=== PATIENT | male | born 1955 | race Caucasian/White ===

== ENCOUNTER 2022-06-30 14:39 | Emergency (ER) | payer MEDICARE, SELFPAY ==
[2022-06-30] VITALS (7 sets, daily range): BP systolic 111–123; BP diastolic 70–79; PULSE 65–100; RESP 14–18; TEMP 36.6–37.2; O2SAT 95–99
--- NOTE | 2022-06-30 15:05 | ED.NAVMDI ---
HPI - Nausea/Vomiting/Diarrhea General Chief complaint: Nausea/Vomiting/Diarrhea Stated complaint: abdominal pain, diarrhea, vomiting Time Seen by Provider: 06/30/22 15:02 Source: patient Mode of arrival: ambulatory Limitations: no limitations History of Present Illness HPI Narrative: 67-year-old male with a history of hypertension, dyslipidemia, negative stress test in December of 2020, recent COVID presents to the ER with 1 day history of -- nausea with multiple episodes of vomiting. The last vomitus she had was at 3:00 a.m. -- Multiple loose stools. His has multiple episodes of diarrhea. decreased urine output. MD elicited complaint: nausea, vomiting and diarrhea Pertinent past history: anorexia Onset (ago): hour(s) ( Started 15 hours ago.) Description of vomiting: watery Description of diarrhea: watery Associated nausea: Yes Associated abdominal pain: No Location of pain: none Radiation: diffuse Pain consistency: constant Severity: mild Exacerbating factors: none Relieving factors: none Associated symptoms: denies other symptoms Related Data Allergies Allergy/AdvReac Type Severity Reaction Status Date / Time No Known Allergies Allergy Unknown Verified 06/30/22 15:16 Review of Systems Review of Systems: All systems reviewed & are unremarkable except as noted in HPI and below Constitutional: Constitutional: Reports as per HPI and Reports no additional constitutional complaints Eyes: Eyes: Reports as per HPI and Reports no additional eye complaints ENT: Reports system reviewed and no additional complaints, except as documented and Reports as per HPI Cardiovascular: Cardiovascular: Reports as per HPI and Reports no additional cardiovascular complaints Respiratory: Respiratory: Reports as per HPI and Reports no additional respiratory complaints Gastrointestinal: Gastrointestinal: Reports as per HPI, Reports no additional gastrointestinal complaints, Reports diarrhea, Reports nausea and Reports vomiting Genitourinary: Genitourinary: Reports no additional male genitourinary complaints and Reports as per HPI Musculoskeletal: Musculoskeletal: Reports no additional musculoskeletal complaints and Reports as per HPI Integumentary/Breasts: Skin/Breast: Reports system reviewed and no additional complaints, except as docu and Reports as per HPI Neurologic: Reports system reviewed and no additional complaints, except as documented and Reports as per HPI Psychiatric: Psychiatric: Reports no additional psychiatric complaints and Reports as per HPI Endocrine: Endocrine: Reports no additional endocrine complaints and Reports as per HPI Hematologic/Lymphatic: Hematologic/Lymphatic: Reports no additional hematologic/lymphatic complaints and Reports as per HPI Allergic/Immunologic: Allergic/Immunologic: Reports no additional allergic/immunologic complaints and Reports as per HPI [facility] Past Medical History Medical History Hypertension Mixed hyperlipidemia Normal colonoscopy (~06/2007) Surgical History Surgical History H/O hernia repair History of repair of right rotator cuff S/P tendon repair Right thumb Family History Family History Father Family history of heart disease in male family member before age 55 Hypertension Mother Family history of heart disease in male family member before age 55 Hypertension Family history of diabetes mellitus in first degree relative Sibling Asthma Acute myocardial infarction Social History Social History Smoking status: Never smoker Alcohol intake: current Alcohol use details: seldom; socially Substance use: never Substance use type: does not use Exam Const: General: healthy appearing and no acute distress Nutritional Appearance: we
[2022-06-30 15:43] LABS: Basophils Absolute Auto 0.03 K/mm3 (0.00-0.10); Basophils Percent Auto 0.3 % (0.0-1.0); Eosinophils Absolute Auto 0.02 K/mm3 (0.02-0.50); Eosinophils Percent Auto 0.2 % (1.0-6.0); Hematocrit 46.4 % (37.0-46.0); Hemoglobin 15.7 g/dL (12.4-15.3); Immature Granulocyte Absolute 0.04 K/mm3 (0.00-0.00); Immature Granulocyte Percent A 0.4 % (0.0-0.0); Lymphocytes Absolute Auto 0.88 K/mm3 (1.10-4.50); Lymphocytes Percent Auto 8.8 % (18.0-42.0); Mean Corpuscular HGB Conc 33.8 g/dL (32.0-36.0); Mean Corpuscular Hemoglobin 31.9 pg (27.0-31.0); Mean Corpuscular Volume 94.3 fL (78.0-102.0); Mean Platelet Volume 11.1 fl (8.7-11.0); Monocytes Absolute Auto 0.68 K/mm3 (0.10-0.90); Monocytes Percent Auto 6.8 % (2.0-11.0); Neutrophils Absolute Auto 8.4 K/mm3 (1.7-7.2); Neutrophils Percent Auto 83.5 % (50.0-70.0); Platelet Count Result 237 K/mm3 (150-420); Red Blood Count 4.92 M/mm3 (4.70-6.10); Red Cell Distribution Width 12.4 % (11.6-14.4)
[2022-06-30] MEDS: LACTATED RINGERS 1,000 ML 999 ML IV CONT (15:43)
[2022-06-30] MEDS: ONDANSETRON INJ 4 MG/2 ML VIAL IV PUSH (15:44)
[2022-06-30 15:56] LABS: Prothrombin Time 11.3 Seconds (9.50-12.10)
[2022-06-30 15:58] LABS: Alanine Aminotransferase 35 U/L (16-63); Alkaline Phosphatase 107 U/L (46-116); Aspartate Amino Transferase 21 U/L (15-37); Bilirubin,Total 0.8 mg/dL (0.00-1.00); Blood Urea Nitrogen 18 mg/dL (7-18); Calcium 8.8 mg/dL (8.5-10.1); Carbon Dioxide 29 mmol/L (21-32); Estimated CRCL calculation 66 ml/min; Estimated Glomerular Filt Rate > 60; Glucose 108 mg/dL (70-99); Lipase 28 U/L (16-77); Total Protein 7.5 g/dL (6.4-8.2)
[2022-06-30 16:01] LABS: Lactic Acid Reflex 1.3 mmol/L (0.4-2.0)
[2022-06-30 18:25] LABS: Anion Gap 10 mmol/L (8-16); Chloride 102 mmol/L (98-108); Osmolality Calculated 294 mOsm/kg (285-295); Potassium 4.1 mmol/L (3.5-5.1); Sodium 141 mmol/L (136-145)
--- NOTE | 2022-06-30 18:31 | PC.NURSE ---
while giving report to aguilar layne corrected chem panel resulted and values were normal. erp discussed this with pt and hospitalist and admission cancelled.
== END 2022-06-30 18:57 | disposition home or self-care (01) ==
LOC: CHSED 18:20 → CHS2ND 18:35 → CHSED 18:49
PROVIDERS: Emergency Provider Internal Medicine Critical Care Medicine; PCP Family Medicine
DX: K52.9 Noninfective gastroenteritis and colitis, unspecified (principal); E86.0 Dehydration; E87.8 Other disorders of electrolyte and fluid balance, not elsewhere classified; I10 Essential (primary) hypertension; E78.2 Mixed hyperlipidemia
CPT/HCPCS: 36415; 80053; 83605; 83690; 85025; 85610; 96361; 96374; 99284; J2405; J7120

== ENCOUNTER 2024-08-22 13:30 | Emergency (ER) | payer MEDICARE, SELFPAY ==
--- NOTE | ~2024-08-22 | US_ITS ---
EXAMINATION: US venous doppler [facility] DATE: 08/22/2024 14:22 INDICATION: Right lower limb pain. TECHNIQUE: Grayscale ultrasound images without and with compression and Doppler ultrasound images of the bilateral lower extremity veins were obtained. COMPARISON: Ultrasound 05/18/2004 FINDINGS: The visualized portions of right common femoral vein, profunda (deep) femoral vein, femoral vein, pop liteal vein, peroneal veins, posterior tibial veins, and greater saphenous vein outflow are patent. The visualized portions of left common femoral vein, profunda femoral vein, femoral vein, popliteal v ein, peroneal veins, posterior tibial veins, and greater saphenous vein outflow are patent. IMPRESSION: 1. No deep venous thrombosis. Reviewed, dictated and finalized at location B.
[2024-08-22 13:32] VITALS: BP 124/60; PULSE 92; RESP 16; TEMP 36.8; O2SAT 98
--- NOTE | 2024-08-22 14:07 | ED.EXTPRO ---
HPI - Extremity Problem General Chief complaint: Extremity Problem,Nontraumatic Stated complaint: RIGHT lower leg concerns Time Seen by Provider: 08/22/24 13:42 History of Present Illness HPI Narrative: 69-year-old male with a past medical history including hypertension, hyperlipidemia. He presents to the emergency department for evaluation of right lower extremity swelling since Tuesday. He states he is not murmur any injury or trauma. No bug bites but woke up on Tuesday with a swollen right leg. Is circumferentially swollen from his knee down to his ankle. Ice pitting edema in his right leg. No history of CHF, no history of DVT. Was otherwise in his normal state of health. Denies any fever, chills, abdominal pain, chest pain, shortness a breath, back pain. No knee pain, is able to range his extremity, ambulatory without assistance. States that he has some pain in his posterior calf on the right side the gets better with ambulation. Related Data Allergies Allergy/AdvReac Type Severity Reaction Status Date / Time No Known Allergies Allergy Unknown Verified 08/22/24 13:38 Review of Systems Review of Systems: As reviewed above in HPI [facility] Past Medical History Medical History Screening for prostate cancer Screening for ischemic heart disease On intermediate drug therapy Colon cancer screening Normal colonoscopy (~06/2007) Mixed hyperlipidemia Hypertension Surgical History Surgical History History of repair of right rotator cuff H/O hernia repair S/P tendon repair Right thumb Family History Family History Father Family history of heart disease in male family member before age 55 Hypertension Mother Family history of heart disease in male family member before age 55 Hypertension Family history of diabetes mellitus in first degree relative Sibling Asthma Acute myocardial infarction Social History Social History Smoking status: Never smoker Alcohol intake: current Alcohol use details: seldom; socially Substance use: never Substance use type: does not use Lack of Transportation: No Lack of Food: Never True Current Housing: I Have Housing Concerned About Future Housing: No Difficulty Paying Gas/Electric Bills: No Difficulty Paying for Meds: No Currently Unemployed: No Education: High School Diploma/GED Difficulty w/ Childcare or Family Care: No Living arrangements: with family Gender identity (if verbalized by the patient): Male Spiritual care concerns: No Agree to blood products: Yes Exam Narrative: GENERAL: [Well-appearing, well-nourished, and in no acute distress.] HEAD: [Normocephalic, atraumatic.] EYES: [PERRLA and EOMI.] ENT: Nares clear, no rhinorrhea or epistaxis. Mucous membranes moist. NECK: Supple. CHEST: [Clear to auscultation. No respiratory distress.] HEART: [Regular rate and rhythm]. No murmur heard. [Normal peripheral pulses.] ABDOMEN: [Soft, nondistended], [nontender], [No rigidity or guarding] EXTREMITIES: Right lower extremity swelling from the knee down to the ankle with 2+ pitting edema compared to the left side without any edema. Some warmth and tenderness as well as some redness to the skin on the right side consistent with potential cellulitic skin changes verses DVT. Extensor mechanism intact, able to ambulate in the ED. Flexion and extension at the knee and ankle are full. No restricted range of motion or pain with ranging. SKIN: Warm, dry, no rash. NEURO: [No focal deficits]. Alert and oriented [x3.] PSYCH: [Normal mood and affect.] Course Vital Signs Vital signs: Vital Signs Temperature 36.8 C 08/22/24 13:32 Pulse Rate 92 08/22/24 13:32 Respiratory Rate 16 08/22/24 13:32 Blood Pressure 124/60 08/22/24 13:32 Pulse Oximetry 98 08/22/24 13:32 Oxygen Delivery Room Air 08/22/24 13:32 Temperature 36.8 C 08/22/24 13:32 Pulse Rate 92 08/22/24 13:32 Respiratory Rate 16 08/22/24 13:32 Blood Pressure 124/60 08/22/24 13:32 Pulse Oximetry 98 08/22/24 13:32 Oxygen Delivery Room Air 08/22/24 13:32 MDM - Extremity (Nontraumatic) MDM Narrative Medical decision making narrative: 69-year-old male presenting for evaluation of right lower extremity swelling. His examination is are consistent with potential DVT versus cellulitis. He has a swollen right leg from the knee down to the ankle with 2+ pitting edema with some warmth tenderness and erythema. No obvious foci of injury, he denies any falls or trauma. No history of DVT. He has 2+ symmetric pedal pulses. Warm well-perfused extremity. Normal vital signs. No real risk factors for deep venous thrombosis is he is not sedentary, no recent surgery, no recent travel or immobilization. Will obtain bilateral venous Doppler ultrasounds and decide on treatment regimen based on those. Potential antibiotics versus anticoagulants. DVT ultrasound shows no blood clot or DBS thrombosis. Patient will be started on Bactrim for right leg cellulitis. Patient hemodynamically stable and made aware of diagnosis and plan of care. Discharge Plan Discharge Clinical Impression: Cellulitis of leg, right Patient Disposition: Home, Self-Care Condition: Stable Instructions: Antibiotic Form, Cellulitis (ED) Additional Instructions: Your DVT scan shows no blood clot or deep venous thrombosis. We will treat you for cellulitis based on your clinical exam. Follow-up with regular doctor, take antibiotics for the next week and return with any new or worsening concerns. Patient Language: Mozambican Prescriptions: New sulfamethoxazole-trimethoprim [Bactrim DS] 800-160 mg tablet 1 tablet PO Q12H Qty: 14 0RF No Action atorvastatin 20 mg tablet 20 mg PO DAILY Qty: 90 2RF lisinopril 10 mg tablet 10 mg PO DAILY Qty: 100 2RF Follow-up/Referrals: Radha Patel MD [Primary Care Provider] - Time of Disposition: 14:42
--- OUTSIDE RECORDS SUMMARY | 2024-08-22 15:08 | XMS_ITS | Clinical Summary ---
Author Organization [facility] Address [address] [place] [address] Care Team Providers Care Molder Vacuum Name Role Phone Unavailable Primary Care Provider Unavailabl e Source Comments [facility],non-owned Affiliates and Associated Physician Practices is amultiple site organization consisting of ambulatory clinics and hospital sitesin [place], [place], [place] and [place]. This disclosure is being madepursuant to the Care Everywhere program and may not contain all information available regarding this patient. Last updated 18.[facility] Immunizations Name Administration Dates Next Due INFLUENZA VACCINE, QUADR. (F LUZONE; FLULAVAL; FLUARIX; AFLURIA QUADRIVALENT; 6MO+), 0.5 ML (IIV4) 04/15/2019 Social History Tobacco Use Types Packs/Day Years Used Date Smoking Tobacco: Never Assessed Sex and Gender Information Value Date Recorded Sex Assigned at Not on file Gender Identity Not on file Sexual Orientation Not on file Plan of Treatment Health Maintenance Due Date Last Done Comments COLOGUARD (AGES 45-75) - COL ON CA SCREENING 1957 COLON MONITORING 1957 COLONOSCOPY - COLON CA SCREENING 1957 CT COLONOGRAPHY - COLON CA SCREENING 1957 Colorectal Cancer Screening 1957 FIT - COLON CA SCREENING 1957 FLEX SIG - COLON CA SCREENING 1957 LIPID TESTING 1957 HEPATITIS C SCREENING 01/26/1975 DTAP/TDAP/TD VACCINES (1 - Tdap) 01/31/1976 PNEUMOCOCCAL VACCINE 50+ (1 of 1 - PCV) 2007 ZOSTER VACCINE (1 of 2) 2007 COVID-19 VACCINE (1 - 2023-2 5 season) 2024 INFLUENZA VACCINE (#1) 2024 04/15/2019 DEPRESSION SCREENING 06/13/2024 Respiratory Syncytial Virus (RSV) Vaccine Pt: or over 60 yrs (1 - 1-dose 75+ series) 01/31/2032 HEPATITIS B VACCINE Aged Out No longe r eligible based on patient's age to complete this topic HIB VACCINE Aged Out No longer eligi ble based on patient's age to complete this topic HPV VACCINE Aged Out No longer eligi ble based on patient's age to complete this topic MENINGOCOCCAL (Group B) VACC INE SHARED DECISION-MAKING Aged Out No longer eligibl e based on patient's age to complete this topic MENINGOCOCCAL GROUPS A/C/Y/W VACCINE Aged Out No longer eligible b ased on patient's age to complete this topic
--- OUTSIDE RECORDS SUMMARY | 2024-08-22 15:08 | XMS_ITS | Referral Summary ---
Author Organization [facility] Address [address] [place] [address] Care Team Providers Care Pharmacovigilance Specialist Name Role Phone Unavailable Primary Care Provider Unavailabl e Source Comments [facility],non-owned Affiliates and Associated Physician Practices is amultiple site organization consisting of ambulatory clinics and hospital sitesin [place], [place], [place] and [place]. This disclosure is being madepursuant to the Care Everywhere program and may not contain all information available regarding this patient. Last updated 18.[facility] Immunizations Name Administration Dates Next Due INFLUENZA VACCINE, QUADR. (F LUZONE; FLULAVAL; FLUARIX; AFLURIA QUADRIVALENT; 6MO+), 0.5 ML (IIV4) 04/15/2019 Social History Tobacco Use Types Packs/Day Years Used Date Smoking Tobacco: Never Assessed Sex and Gender Information Value Date Recorded Sex Assigned at Not on file Gender Identity Not on file Sexual Orientation Not on file Plan of Treatment Not on file
--- OUTSIDE RECORDS SUMMARY | 2024-08-22 15:08 | XMS_ITS | Clinical Summary ---
Author Organization [facility] Address [facility] [place] [address] Care Team Providers Care Flotation Tender Name Role Phone Radha Patel MD Primary Care Provider [phone] Allergies No known active allergies Medications lisinopril 10 MG tablet Take 1 tablet by mouth daily. 06/03/2021 Active atorvastatin 20 MG tablet Take 1 tablet by mouth daily. 06/03/2021 Active busPIRone 5 MG tablet Take 1 tablet by mouth nightly. 1-2 tablets at night 05/27/2021 Active Active Problems Problem Noted Date Diagnosed Date S/P right rotator cuff repair 11/13/2021 Shoulder impingement, right 07/21/2021 Resolved Problems Problem Noted Date Diagnosed Date Resolved Date Follow-up examination after orthopedic surgery 01/29/2022 02/01/2022 Family History Medical History Relation Comments Heart Attack Brother Heart Disease Father Diabetes Mother Heart Disease Mother Asthma Sister Diabetes Sister Relation Status Comments Brother Father Mother Sister Alive Social History Tobacco Use Types Packs/Day Years Used Date Smoking Tobacco: Never Smokeless Tobacco: Never Alcohol Use Standard Drinks/Week Comments Yes 0 (1 standard drink = 0.6 oz pur e alcohol) Rarely Sex and Gender Information Value Date Recorded Sex Assigned at Not on file 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 Gender Identity Not on file Sexual Orientation Not on file Last Filed Vital Signs Vital Sign Reading Time Taken Comments Blood Pressure 102/62 09/24/2021 12:22 PM CDT Pulse 76 09/24/2021 12:22 PM CDT Temperature 35.9 C (96.7 F) 09/24/2021 12:22 PM CDT Respiratory Rate 18 09/24/2021 12:22 PM CDT Oxygen Saturation 100% 09/24/2021 12:22 PM CDT Inhaled Oxygen Concentration - - Weight 96.2 kg (212 lb) 03/03/2022 3:52 PM CDT Height 180.3 cm (5' 11 ) 03/03/2022 3:52 PM CDT Body Mass Index 29.57 03/03/2022 3:52 PM CDT Plan of Treatment Health Maintenance Due Date Last Done Comments Colorectal Cancer Screening Colonoscopy (10 Years) 1957 Hepatitis C 1975 DTaP, Tdap and Td Vaccines ( 1 - Tdap) 01/31/1976 Zoster Vaccines (1 of 2) 2007 Pneumococcal Vaccine: 65+ Years (1 of 1 - PCV) 2022 COVID-19 Vaccine (3 - 2023-2 5 season) 2024 08/12/2020, 07/15/2020 Influenza Adult (#1) 2024 04/15/2019 RSV Immunization or 60+ Years (1 - 1-dose 75+ series) 01/31/2032 Meningococcal B Vaccine Aged Out No l onger eligible based on patient's age to complete this topic Meningococcal Vaccine Aged Out No prabhjot palmira eligible based on patient's age to complete this topic RSV Immunizations Under 20 Months Aged Out No longer eligible b ased on patient's age to complete this topic Medical Devices Implanted Type Area Sole Trimmer Device Identifier Shelf Expiration Date Model / Serial / Lot Meridian Suture Bio-Swivelock C [employer] - [id number] Implanted:Qty: 1 on 09/24/2021 by Dmitry Otero MD at [facility] Meridian Right: Shoulder [employer] [id number] 11/10/[address] / / [id number] Meridian Suture Bio-Swivelock C [employer]rex White/Black 4.75 X 19.1mm - [id number] Implanted:Qty: 1 on 09/24/2021 by Dmitry Otero MD at [facility] Meridian Right: Shoulder [employer] [id number] 11/10/2024 [id number]-2324BC CTT / / [id number] Meridian Suture 4.75mm - [id number] Implanted:Qty: 1 on 09/24/2021 by Dmitry Otero MD at [facility] Meridian Right: Shoulder [employer] [id number] 04/12/2025 AR-2324BC M / / [id number] Meridian Suture 4.75mm - [id number] Implanted:Qty: 1 on 09/24/2021 by Dmitry Otero MD at [facility] Meridian Right: Shoulder [employer] [id number] 02/10/2025 [id number]-[id number] M / / [id number] Insurance [employer] [facility] Care Teams Flotation Tender Relationship Specialty Start Date End Date Radha Patel MD [address] [place] [address] PCP - General FAMILY PRACTICE 07/21/21
--- OUTSIDE RECORDS SUMMARY | 2024-08-22 15:08 | XMS_ITS | Referral Summary ---
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
--- OUTSIDE RECORDS SUMMARY | 2024-08-22 15:08 | XMS_ITS | Clinical Summary ---
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
--- OUTSIDE RECORDS SUMMARY | 2024-08-22 15:08 | XMS_ITS | Patient Health Summary ---
Author Organization [facility] Address [address] [place] [address] Care Team Providers Care Facility Examiner Name Role Phone Unavailable Primary Care Provider Unavailabl e Note from [facility],non-owned Affiliates and Associated Physician Practices is amultiple site organization consisting of ambulatory clinics and hospital sitesin [place], [place], [place] and [place]. This disclosure is being madepursuant to the Care Everywhere program and may not contain all information available regarding this patient. Last updated 18.[facility] Immunizations * INFLUENZA VACCINE, QUADR. (FLUZONE; FLULAVAL; FLUARIX; AFLURIA QUADRIVALENT; 6MO+), 0.5 ML (IIV4)(Given 04/15/2019) Social History Tobacco Use Types Packs/Day Years Used Date Smoking Tobacco: Never Assessed Sex and Gender Information Value Date Recorded Sex Assigned at Not on file Gender Identity Not on file Sexual Orientation Not on file
--- OUTSIDE RECORDS SUMMARY | 2024-08-22 16:25 | XMS_ITS | Referral Summary ---
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
--- OUTSIDE RECORDS SUMMARY | 2024-08-22 16:25 | XMS_ITS | Referral Summary ---
Author Organization [facility] Address [address] [facility] [place] [address] Care Team Providers Care Form Raiser Name Role Phone Unavailable Primary Care Provider Unavailabl e Source Comments [facility],non-owned Affiliates and Associated Physician Practices is amultiple site organization consisting of ambulatory clinics and hospital sitesin [place], [place], [place] and [place]. This disclosure is being madepursuant to the Care Everywhere program and may not contain all information available regarding this patient. Last updated 18.[facility] Immunizations Name Administration Dates Next Due [...]
--- OUTSIDE RECORDS SUMMARY | 2024-08-22 16:25 | XMS_ITS | Clinical Summary ---
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
--- OUTSIDE RECORDS SUMMARY | 2024-08-22 16:25 | XMS_ITS | Patient Health Summary ---
Author Organization [facility] Address [address] [facility] [place] [address] Care Team Providers Care Investigator Operator Name Role Phone Unavailable Primary Care Provider Unavailabl e Note from [facility],non-owned Affiliates and Associated Physician Practices is amultiple site organization consisting of ambulatory clinics and hospital sitesin [place], [place], [place] and [place]. This disclosure is being madepursuant to the Care Everywhere program and may not contain all information available regarding this patient. Last updated 18.[facility] Immunizations * INFLUENZA VACCINE, QUADR. (FLUZONE; FLULAVAL; FLUARIX; AFLURIA QUADRIVALENT; 6MO+), 0.5 ML (IIV4)(Given 04/15/2019) Social History Tobacco Use Types Packs/Day Years Used Date Smoking Tobacco: Never Assessed Sex and Gender Information Value Date Recorded Sex Assigned at Not on file Gender Identity Not on file Sexual Orientation Not on file
--- OUTSIDE RECORDS SUMMARY | 2024-08-22 16:25 | XMS_ITS | Clinical Summary ---
Author Organization [facility] Address [address] [place] [address] Care Team Providers Care Veneer Stacker Name Role Phone Unavailable Primary Care Provider Unavailabl e Source Comments [facility],non-owned Affiliates and Associated Physician Practices is amultiple site organization consisting of ambulatory clinics and hospital sitesin [place], [place], [place] and [place]. This disclosure is being madepursuant to the Care Everywhere program and may not contain all information available regarding this patient. Last updated 18.[facility] Kymab Immunizations Name Administration Dates Next Due INFLUENZA [...]
--- OUTSIDE RECORDS SUMMARY | 2024-08-22 16:25 | XMS_ITS | Clinical Summary ---
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 Gender Identity Not on file Sexual Orientation [...] this topic Medical Devices Implanted Type Area Assistant Buyer Device Identifier Shelf Expiration Date Model / Serial / Lot [place] Suture Bio-Swivelock C [employer] - [id number] Implanted:Qty: 1 on 09/24/2021 by Dmitry Otero MD at [facility] [employer]rest Right: Shoulder [employer] [id number] 11/10/[address] / / [id number] [employer] [place] Suture Bio-Swivelock C [employer] White/Black 4.75 X 19.1mm - [id number] Implanted:Qty: 1 on 09/24/2021 by Dmitry Otero MD at [facility] [employer] Right: Shoulder [employer] [id number] 11/10/2024 RONEY-2324BC CTT / / [id number] [employer] Suture 4.75mm - [id number] Implanted:Qty: 1 on 09/24/2021 by Dmitry Otero MD at [facility] [employer] Right: Shoulder [employer] [id number] 04/12/2025 AR-2324BC M / / [id number] [employer] Suture 4.75mm - [id number] Implanted:Qty: 1 on 09/24/2021 by Dmitry Otero MD at [facility] [employer] Right: Shoulder [employer] [id number] 02/10/2025 AR-2324BC M / / [id number] Insurance [employer] [facility] Care Teams Business Editor Relationship Specialty Start Date End Date Radha Patel MD [address] [place] [address] PCP - General FAMILY PRACTICE 07/21/21
== END 2024-08-22 15:01 | disposition home or self-care (01) ==
PROVIDERS: Emergency Provider Student in an Organized Health Care Education/Training Program; PCP Family Medicine
DX: L03.115 Cellulitis of right lower limb (principal); I10 Essential (primary) hypertension; E78.2 Mixed hyperlipidemia
CPT/HCPCS: 93970; 99284

== ENCOUNTER 2025-03-22 21:36 | Emergency (ER) | payer MEDICARE, SELFPAY ==
[2025-03-22] VITALS (14 sets, daily range): BP systolic 103–150; BP diastolic 81–89; PULSE 82–93; RESP 10–18; TEMP 37; O2SAT 98–100
--- NOTE | ~2025-03-22 | CT_ITS ---
EXAMINATION: CT thoracic lumbar wo con DATE: 03/23/2025 01:12 INDICATION: Trauma. TECHNIQUE: Computed tomography (CT) of the thoracic and lumbar spine was performed without intravenous contrast. Automated exposure control and iterative reconstruction technique were employed. The dose-length product was 2090.78 mGy-cm. COMPARISON: None FINDINGS: CT THORACIC SPINE: There is 5 degrees dextrocurvature of thoracic spine. There is mild chronic anterior wedging of T5, T6, and T7 vertebral bodies. There is a compression fracture of T12 with less than 1/5 loss of height. There is mildly decreased disc height at multiple levels. There is moderate to severely decreased disc height from T4-T5 through T11-T12. There is multilevel mild facet joint osteoarthritis. There is mild neural foraminal stenosis at multiple levels on either side. On the right, there is moderate neural foraminal stenosis at T11-T12. On the left, there is moderate neural foraminal stenosis at T8-T9 and T11-T12. 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 There is mild central canal stenosis at many levels. CT LUMBAR SPINE: There is 7 degrees dextrocurvature of lumbar spine. There is mild chronic anterior wedging of L1 vertebral body. There is moderately decreased disc height at L1-L2 and L2-L3 and severely decreased disc height from L3-L4 through L5-S1. There is multilevel severe facet joint osteoarthritis. The discs are bulging from L1-L2 through L5-S1. There is mild neural foraminal stenosis at multiple levels on either side. On the right, there is moderate neural foraminal stenosis at L3-L4, L4-L5, and L5-S1. There is mild central canal stenosis at L1-L2 and L2-L3, moderate central canal stenosis at L3-L4 and L4-L5, and mild central canal stenosis at L5-S1. IMPRESSION: 1. T12 compression fracture. 2. Severe thoracic and lumbar spondylosis. Reviewed, dictated and finalized at location E.
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
--- NOTE | ~2025-03-22 | CT_ITS ---
EXAMINATION: CTA chest PE abdomen pel DATE: 03/23/2025 01:12 INDICATION: Trauma. TECHNIQUE: Computed tomography angiography (CTA) of the chest was performed with 100 mL Omnipaque-350 intravenous contrast timed to evaluate the pulmonary arteries. Coronal maximum intensity projection 3D-reconstructions were created by the technologist. Computed tomography (CT) of the abdomen and pelvis was performed with intravenous contrast. Automated exposure control and iterative reconstruction technique were employed. The dose-length product was 2011.35 mGy-cm. COMPARISON: None. FINDINGS: CTA chest: The lungs demonstrate mild atelectasis. Calcified lung nodules and calcified hilar mediastinal lymph nodes are consistent with old granulomatous disease. No pleural effusion. The heart size is normal. No pericardial effusion. There is no pulmonary embolus. The aorta is normal in caliber. There are suture anchors in right humeral head. There is mild chronic anterior wedging of multiple vertebral bodies. There is moderate thoracic spondylosis. CT abdomen and pelvis: The liver, gallbladder, spleen, pancreas, adrenal glands, and kidneys are normal. The prostate is severely enlarged. There are no dilated loops of bowel. The appendix is normal. There are no pathologically enlarged lymph nodes. There is no free intraperitoneal fluid. There is severe lumbar spondylosis. IMPRESSION: 1. No acute posttraumatic findings. Reviewed, dictated and finalized at location E.
--- NOTE | 2025-03-22 21:57 | ECG_ITS ---
Test Date: 2025-03-22 21:35:17 Measurements Intervals [place] Rate: 89 P: 39 VA: 167 QRS: 37 QRSD: 106 T: 22 QT: 385 QTc: 470 Interpretive Statements SINUS RHYTHM MINIMAL Q WAVES- INFERIOR LEADS BASELINE ARTIFACT- II, III, AVR, AVF BORDERLINE ECG No previous ECG available for comparison Electronically Signed On 03-23-2025 08:43:54 CDT by Khurram Olson D.O.
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
[2025-03-22] MEDS: SODIUM CHLORIDE 0.9% IV 1,000 ML 999 ML IV CONT (22:05)
[2025-03-22] MEDS: NALOXONE HCL 0.4 MG/ML VIAL IV PUSH (22:06)
[2025-03-22 22:19] LABS: Alveolar/Arterial O2 Gradient 62.3 mmHg; Fractional Inspired Oxygen 28 %; HCO3 ABG 21.9 mEq/l (22.0-26.0); Oxygen Content ABG 19.2 %vol (16.0-22.0); Oxygen Saturation ABG 97.1 % (95.0-100.0); PCO2 ABG 37.5 mmHg (35.0-45.0); PO2 ABG 93.1 mmHg (80.0-100.0); PO2 FiO2 Ratio Arterial Blood 3.33 %
[2025-03-22 22:21] LABS: Liters per Minute 2.0 LPM; Modified Allen's Test Pass; Site Drawn RIGHT RADIAL
--- OUTSIDE RECORDS SUMMARY | 2025-03-22 22:31 | XMS_ITS | Clinical Summary ---
Author Organization [facility] [address] Address [address] [place] [address] Care Team Providers Care Instruction Librarian Name Role Phone Radha Patel MD Primary Care Provider Allergies No known active allergies Social History Tobacco Use Types Packs/Day Years Used Date Smoking Tobacco: Never Assessed Personal Safety Answer Date Recorded Getting School Help Needed Not on file 08/27 Sex and Gender Information Value Date Recorded Sex Assigned at Not on file Legal Sex Male 3:42 AM [employer] Gender Identity Not on file Sexual Orientation Not on file Plan of Treatment Not on file Insurance [facility] [employer] Care Teams Instruction Librarian Relationship Specialty Start Date End Date Radha Patel MD PCP - General Family Medicine 12/29/20
[2025-03-22 23:48] LABS: Hematocrit 40.3 % (42.0-52.0); Hemoglobin 13.8 g/dL (14.0-18.0); Immature Granulocyte Percent A 0.2 % (0-0.5); Lymphocytes Absolute Auto 1.33 K/mm3 (0.9-3.2); Mean Corpuscular HGB Conc 34.2 g/dl (32-36); Mean Corpuscular Hemoglobin 32.7 pg (26-34); Mean Corpuscular Volume 95.5 fl (80-100); Nucleated Red Blood Cells Absolute Auto 0.000 K/mm3 (0.0-0.012); Nucleated Red Blood Cells Perc 0.0 % (0.0-0.2); Platelet Count Result 190 k/mm3 (150-375); Red Blood Count 4.22 M/mm3 (4.6-6.20); White Blood Count 12.4 K/mm3 (4.5-10.0)
[2025-03-22 23:59] LABS: Creatine Kinase 198 U/L (55-170)
[2025-03-23] VITALS (17 sets, daily range): BP systolic 136–186; BP diastolic 80–94; PULSE 60–86; RESP 9–18; TEMP 36.8; O2SAT 98–100
[2025-03-23 00:03] LABS: Alanine Aminotransferase 27 U/L (6-50); Albumin Level 4.0 g/dL (3.5-5.1); Alkaline Phosphatase 99 U/L (38-126); Anion Gap 6 mmol/L (4-12); Aspartate Amino Transferase 30 U/L (17-59); Bilirubin,Total 0.6 mg/dL (0.2-1.3); Blood Urea Nitrogen 19 mg/dL (9-20); Calcium 8.7 mg/dL (8.4-10.2); Carbon Dioxide 26 mmol/L (22-30); Chloride 105 mmol/L (98-107); Estimated CRCL calculation 86 ml/min; Estimated Glomerular Filt Rate > 60; Glucose 127 mg/dL (65-110); INR 1.1; Lipase 365 U/L (23-300); Magnesium 2.0 mg/dL (1.6-2.3); Partial Thromboplastin Time 28.1 Seconds (22.3-36.8); Potassium 4.2 mmol/L (3.4-5.0); Prothrombin Time 14.2 Seconds (11.1-14.7); Sodium 137 mmol/L (137-145); Total Protein 6.8 g/dL (6.3-8.2)
[2025-03-23 00:15] LABS: NT Pro B Type Natriuretic Pept < 20 pg/mL (19.9-100); Troponin I < 0.012 ng/mL (0.000-0.034)
[2025-03-23 00:24] LABS: Influenza A QL RT-PCR Negative (Negative); Influenza B QL RT-PCR Negative (Negative); RSV RNA, RT-PCR Negative (Negative); SARS-CoV-2 RNA PCR Negative (Negative)
[2025-03-23 00:33] LABS: Thyroid Stimulating Hormone Reflex 1.150 uIU/mL (0.465-4.68)
[2025-03-23 02:13] LABS: Troponin I < 0.012 ng/mL (0.000-0.034)
[2025-03-23] MEDS: SODIUM CHLORIDE 0.9% IV 1,000 ML 999 ML IV CONT (03:07)
[2025-03-23 06:06] LABS: Cannabinoid Screen Urine Negative (Negative)
[2025-03-23 06:08] LABS: Add Urine Microscopic? NO; Appearance Urine Clear (Clear); Glucose Urine UA Negative (Negative); Leukocyte Esterase Ur Negative LEU/UL (Negative); Nitrate Urine Negative (Negative); Specific Grav Ur 1.035 (1.001-1.035)
[2025-03-23] MEDS: DOXYCYCLINE HYCLATE 100 MG TABLET PO (07:48)
== END 2025-03-23 08:24 | disposition home or self-care (01) ==
PROVIDERS: Emergency Provider Student in an Organized Health Care Education/Training Program; PCP Family Medicine
DX: R55 Syncope and collapse (principal); J18.9 Pneumonia, unspecified organism; F11.10 Opioid abuse, uncomplicated; Z20.822 Contact with and (suspected) exposure to COVID-19; I10 Essential (primary) hypertension; E78.2 Mixed hyperlipidemia; Z79.899 Other long term (current) drug therapy; R94.31 Abnormal electrocardiogram [ECG] [EKG]; M47.816 Spondylosis without myelopathy or radiculopathy, lumbar region; M47.814 Spondylosis without myelopathy or radiculopathy, thoracic region; M48.54XA Collapsed vertebra, not elsewhere classified, thoracic region, initial encounter for fracture; V57.5XXA Driver of pick-up truck or van injured in collision with fixed or stationary object in traffic accident, initial encounter
CPT/HCPCS: 36415; 36600; 70450; 71275; 72125; 72128; 72131; 74177; 80053; 80307; 81003; 82077; 82550; 82805; 82948; 83605; 83690; 83735; 83880; 84443; 84484; 85018; 85025; 85610; 85730; 86850; 86900; 86901; 87637; 93005; 96361; 96374; 99284; A9270; J2312; J7030; Q9967

== ENCOUNTER 2025-05-15 14:48 | Emergency (ER) | payer MEDICARE, SELFPAY ==
--- NOTE | 2025-05-15 14:49 | ED_ITS ---
HPI - URI/Sore Throat General Chief Complaint: Upper Respiratory Infection Stated Complaint: SINUS DRAINAGE/COUGH Time Seen by Provider: 05/15/25 14:48 Source: patient Mode of arrival: ambulatory Limitations: no limitations History of Present Illness HPI Narrative: Mann is a 70-year-old male patient presenting to the clinic today with complaints of nasal congestion and cough x1 day. Blowing out in coughing up clear phlegm. He reports he had take Coricidin HBP for his symptoms. Denies any fevers, chills, body aches. Denies any chest pain or shortness of breath. Related Data Allergies Allergy/AdvReac Type Severity Reaction Status Date / Time No Known Allergies Allergy Unknown Verified 05/15/25 14:55 Review of Systems Review of Systems: Pertinent positives per HPI. Patient denies any fever, chills, rash, headache, visual changes, dizziness, shortness of breath, chest pain, palpitations, nausea, vomiting, diarrhea, constipation, abdominal pain, or any urinary issues. [facility] Past Medical History Medical History Screening for prostate cancer Screening for ischemic heart disease On petroleum terminal plant operator drug therapy Colon cancer screening Normal colonoscopy (~06/2007) Mixed hyperlipidemia Hypertension Surgical History Surgical History History of repair of right rotator cuff H/O hernia repair S/P tendon repair Right thumb Family History Family History Father Family history of heart disease in male family member before age 55 Hypertension Mother Family history of heart disease in male family member before age 55 Hypertension Family history of diabetes mellitus in first degree relative Sibling Asthma Acute myocardial infarction Social History Social History Smoking status: Never smoker Alcohol intake: current Alcohol use details: seldom; socially Substance use: never Substance use type: does not use Lack of Transportation: No Lack of Food: Never True Current Housing: I Have Housing Concerned About Future Housing: No Difficulty Paying Gas/Electric Bills: No Difficulty Paying for Meds: No Currently Unemployed: No Education: High School Diploma/GED Difficulty w/ Childcare or Family Care: No Living arrangements: with family Gender identity (if verbalized by the patient): Male Spiritual care concerns: No Agree to blood products: Yes Comments At the time of my signature, I reviewed and agree with the nursing past medical, surgical, social, and family history. There is no relevant family history pertinent to the patient complaint. Exam Narrative: General: Well-developed, well nourished, in no apparent distress Head: Normocephalic, atraumatic Eyes: Pupils equally round and reactive to light bilaterally, EOM intact, sclera and conjunctive clear, no discharge, lids normal Ears: TMs intact and clear, ear canals clear, no drainage, grossly hearing normal. Nose: Nares patent, clear nasal discharge, no inflammation, no sinus tenderness. Mouth: Oral pharynx without lesions or masses, good dentition, MMM. Neck: Supple, trachea midline, no enlargement of anterior or posterior cervical nodes, no thyroid masses or goiter palpable. Cardio: Regular rate and rhythm, s1 and s2 normal, no murmur appreciated. Resp: Clear to auscultation bilaterally, no rhonchi, rales, wheezing or rubs Course Course Level of Care: Express Care Visit Vital Signs Vital signs: Vital Signs Temperature 36.8 C 05/15/25 15:00 Pulse Rate 96 05/15/25 15:00 Respiratory Rate 16 05/15/25 15:00 Blood Pressure 118/68 05/15/25 15:00 Pulse Oximetry 100 05/15/25 15:00 Temperature 36.8 C 05/15/25 15:00 Pulse Rate 96 05/15/25 15:00 Respiratory Rate 16 05/15/25 15:00 Blood Pressure 118/68 05/15/25 15:00 Pulse Oximetry 100 05/15/25 15:00 [facility] MDM Narrative Medical decision making narrative: At the time of visit patient is resting comfortably on the exam table. Patient appears to be nontoxic. Complaints of nasal congestion and cough x1 day. Blowing out in coughing up clear phlegm. He reports he had take Coricidin HBP for his symptoms. Denies any fevers, chills, body aches. Denies any chest pain or shortness of breath. On exam patient has bilateral TMs intact and clear, clear nasal drainage, oral pharynx normal, no cervical lymphadenopathy, heart rates regular rate and rhythm, lung sounds are clear. Offered COVID and influenza testing and patient would like to testing completed. Labs: COVID and influenza testing was negative in the clinic today. Plan: I suspect patient has URI. No sign of bacterial infection in the clinic today. May continue Coricidin HBP for cold/flu symptoms. May also use Flonase and [id number] antihistamines as discussed. Supportive measures were discussed with the patient and they voiced understanding discharge instructions and agrees to treatment plan. Return precautions reviewed Differential Diagnosis Differential Diagnosis: Sinusitis, URI, otitis media, pharyngitis, influenza, COVID Lab Data Labs: Lab Results 05/15/25 Range/Units 15:16 POC Influenza A Ag Negative (Negative) POC Influenza B Ag Negative (Negative) POC SARS CoV-2 Ag Negative (Negative) Discharge Plan Discharge Clinical Impression: Upper respiratory infection Qualifiers: URI type: unspecified URI Qualified Code(s): J06.9 - Acute upper respiratory infection, unspecified Patient Disposition: Home Condition: Stable Instructions: Antibiotic Form, Cold Symptoms (ED) Additional Instructions: COVID and influenza testing was negative in the clinic today No sign of bacterial infection in the clinic today. May take Coricidin HBP for cold/flu symptoms. Increase fluids and stay well hydrated May take Tylenol or motrin as directed on bottle for pain/fever May use Flonase 1 spray in each nare daily May take OTC antihistamines such as Zyrtec or Claritin daily as directed on bottle May apply Vicks vapor rub to chest to open sinuses Sinus rinses for congestion Cepacol spray, cough drops, throat lozenges, warm tea with honey/lemon, gargle salt water to soothe throat BRAT diet for diarrhea Clear liquids x 24 hours then advance as tolerated for nausea/vomiting Go to the ED if you develop a worsening in your condition- high fever not controlled by Tylenol or Motrin, dehydration, weakness, lethargy, shortness of breath, or chest pain. Follow up with your PCP in 3-5 days if symptoms persist. Patient Language: Divehi Prescriptions: No Action meloxicam 15 mg tablet 15 mg PO DAILY Qty: 30 2RF trazodone 50 mg tablet 50 mg PO QHS PRN (Reason: sleep) Qty: 30 2RF lisinopril 10 mg tablet 10 mg PO DAILY Qty: 100 2RF atorvastatin 20 mg tablet 20 mg PO DAILY Qty: 90 2RF Follow-up/Referrals: Carleen Yanez PA-C [Primary Care Provider, Family Practice] Time of Disposition: 15:17 Quality NIHSS Nursing Documentation ED NIHSS nursing documentation: reviewed/agree
[2025-05-15 15:00] VITALS: BP 118/68; PULSE 96; RESP 16; TEMP 36.8; O2SAT 100
[2025-05-15 15:18] LABS: EDCOVIDSCREEN Negative (Negative); EDINFLUASCREEN Negative (Negative); EDINFLUBSCREEN Negative (Negative)
== END 2025-05-15 15:20 | disposition home or self-care (01) ==
PROVIDERS: Emergency Provider Nurse Practitioner Family; PCP Student in an Organized Health Care Education/Training Program
DX: J06.9 Acute upper respiratory infection, unspecified (principal); Z20.822 Contact with and (suspected) exposure to COVID-19; I10 Essential (primary) hypertension; E78.2 Mixed hyperlipidemia
CPT/HCPCS: 87426; 87804; 99212; G0463